=== PATIENT | male | born 2000 | race Caucasian/White ===

== ENCOUNTER 2023-03-06 15:11 | Outpatient (CLI) | payer BC, SELFPAY | END 2023-03-06 15:12 | disposition home or self-care (01) | LOC: NFLDREF 03-09 10:12 | PROVIDERS: PCP Nurse Practitioner Family; Referring Provider Nurse Practitioner Family; Visit Provider Nurse Practitioner Family | DX: Z79.899 Other long term (current) drug therapy (principal) | CPT/HCPCS: 80053; 82306; 84443 ==

== ENCOUNTER 2024-05-14 14:20 | Outpatient (CLI) | payer BC, SELFPAY ==
--- OUTSIDE RECORDS SUMMARY | 2024-05-14 14:23 | XMS_ITS | Clinical Summary ---
Author Organization [facility] [employer] Address [place], [place] [address] Care Team Providers Care Channel Marketing Manager Name Role Phone Erin Mendoza NP Primary Care Provider [phone] Allergies No known active allergies Medications Medication Sig Dispensed Refills Start Date End Date Status erythromycin ophthalmic ointment 0.5%Indications:Abrasio n of right cornea, initial encounter Apply 1 Strip to right eye 5 times daily. 3.5 g 06/15/2023 Active Social History Tobacco Use Types Packs/Day Years Used Date Smoking Tobacco: Never Assessed Sex and Gender Information Value Date Recorded Sex Assigned at Not on file Gender Identity Not on file Sexual Orientation Not on file Last Filed Vital Signs Vital Sign Reading Time Taken Comments Blood Pressure 126/71 06/15/2023 10:13 AM CDT Pulse 84 06/15/2023 10:13 AM CDT Temperature 36.6 ??C (97.8 ??F) 06/15/2023 10:13 AM C DT Respiratory Rate 18 06/15/2023 10:13 AM CDT Oxygen Saturation 99% 06/15/2023 10:13 AM CDT Inhaled Oxygen Concentration - - Weight 62.1 kg (137 lb) 06/15/2023 10:13 AM CDT Height 154.9 cm (5' 1) 06/15/2023 10:13 AM CDT Body Mass Index 25.89 06/15/2023 10:13 AM CDT Plan of Treatment Health Maintenance Due Date Last Done Comments Tdap 2013 Depression screening for age 12+ 2014 HIV for age 15-65 2017 HPV series for age 9-26 (1 - Male 3-dose series) 2017 BMI (ht and wt on same day) for age 18+ 2020 Hepatitis C screening for age 18-79 2020 Tetanus booster 2022 COVID-19 vaccine series (2022- season) 2023 Influenza for age 9-49 07/21/2024 Meningococcal series for age 11-21 Aged Out No longer eligible based on patient's age to complete this topic Pneumococcal series for age 6-64 Aged Out No longer eligible based on patient's age to complete this topic Care Teams Channel Marketing Manager Relationship Specialty Start Date End Date Erin Mendoza EMBOSSING MACHINE OPERATOR [address] [place] [id number] PCP - General Emergency Medicine 06/15/23
--- OUTSIDE RECORDS SUMMARY | 2024-05-14 14:24 | XMS_ITS | Encounter Summary ---
Author Organization [facility] er Address [address] [place] [address] Care Team Providers Care Database Marketing Manager Name Role Phone Santo Ballesteros MD Primary Care Provider [phone] Encounter Details Date Type Department Care Team (Late st Contact Info) Description 02/24/2020 Telephone [place] [address] [place] [address] Erin Mendoza, HOD CARRIER, SUPERVISOR GEAR REPAIR [address] [place] [address] Social History Tobacco Use Types Packs/Day Years Used Date Smoking Tobacco: Former Smokeless Tobacco: Former Chew Alcohol Use Standard Drinks/Week Comments No 0 (1 standard drink = 0.6 oz pur e alcohol) AUDIT-C Answer Date Recorded Frequency of Alcohol Consumption Never 11/01/2018 Average Number of Drinks Not on file 018 Frequency of Binge Drinking Not on file 10/20 PHQ-2 Answer Date Recorded PHQ-2 Score 0 03/20/2019 Sex and Gender Information Value Date Recorded Sex Assigned at Not on file Gender Identity Not on file Sexual Orientation Not on file COVID-19 Exposure Response Date Recorded In the last month, have you been in contact with someone who was confirmed or suspected to have Coronavirus / COVID-19? No / Unsure 02/25/2020 11:00 AM CDT documented as of this encounter Plan of Treatment Not on file documented as of this encounter Visit Diagnoses Not on filedocumented in this encounter Care Teams Database Marketing Manager Relationship Specialty Start Date End Date Santo Ballesteros MD [address] [facility] [address] [place] [address] PCP - General 07/19/21 documented as of this encounter
--- OUTSIDE RECORDS SUMMARY | 2024-05-14 14:24 | XMS_ITS | Encounter Summary ---
Author Organization [facility] er Address [address] [place] [address] Care Team Providers Care Manager Adult Name Role Phone Santo Ballesteros MD Primary Care Provider [phone] Encounter Details Date Type Department Care Team (Late st Contact Info) Description 02/28/2024 9:40 AM CDT Lab [facility] Medicine [address] [place], [place] [id number] Encounters for blood and urine testing (Primary Dx) Social History Tobacco Use Types Packs/Day Years Used Date Smoking Tobacco: Every Day Cigarettes Smokeless Tobacco: Current Chew Alcohol Use Standard Drinks/Week Comments Yes 40 (1 standard drink = 0.6 oz pu re alcohol) AUDIT-C Answer Date Recorded Q1: How often do you have a drink containing alc ohol? Never 12/03/2020 Average Number of Drinks Not on file 021 Frequency of Binge Drinking Not on file 11/20 PHQ-2 Answer Date Recorded PHQ-9 Total Score 7 03/18/2021 Sex and Gender Information Value Date Recorded Sex Assigned at Not on file Gender Identity Not on file Sexual Orientation Not on file documented as of this encounter Plan of Treatment Not on file documented as of this encounter Visit Diagnoses Diagnosis Encounters for blood and urine testing- Primary Laboratory examination, unspecified documented in this encounter Care Teams Manager Adult Relationship Specialty Start Date End Date Santo Ballesteros MD [address] [place] [address] PCP - General 07/19/21 documented as of this encounter
--- OUTSIDE RECORDS SUMMARY | 2024-05-14 14:24 | XMS_ITS | Encounter Summary ---
Author Organization [facility] er Address [address] [place] [address] Care Team Providers Care Manager Corporate Marketing Name Role Phone Santo Ballesteros MD Primary Care Provider [phone] Encounter Details Date Type Department Care Team (Late st Contact Info) Description 02/06/2024 11:00 AM CDT Lab SE [facility] Medicine [address] [place], [place] [address] Encounters for blood and urine testing (Primary [...] documented in this encounter Care Teams Manager Corporate Marketing Relationship Specialty Start Date End Date Santo Ballesteros MD [address] [place] [address] PCP - General 07/19/21 documented as of this encounter
--- OUTSIDE RECORDS SUMMARY | 2024-05-14 14:24 | XMS_ITS | Clinical Summary ---
Author Organization [facility] er Address [address] [place] [address] Care Team Providers Care Supervisor Asbestos Textile Name Role Phone Santo Ballesteros MD Primary Care Provider [phone] Allergies No known active allergies Medications Medication Sig Dispensed Refills Start Date End Date Status hydrOXYzine (ATARAX) 50 MG tabletIndications:A nxiety Take 1-2 tablets (50-100 mg total) by mouth every 6 (six) hours if needed for anxiety 50 tablet 2 04/13/2021 Active Additional Information Patient not taking.Reported on 04/19/2023 traZODone (DESYREL) 50 MG tabletIndications:C hronic insomnia Take 1-2 tablets (50-100 mg total) by mouth at night if needed for sleep 30 tablet 2 04/13/2021 Active Additional Information Patient not taking.Reported on 04/19/2023 buPROPion XL (WELLBUTRIN XL) 150 MG 24 hr tabletIndications:D epression, unspecified depression type,Anxiety Take 1 tablet (150 mg total) by mouth 1 (one) time each day 30 tablet 04/13/2021 Active Additional Information Patient not taking.Reported on 04/19/2023 amphetamine-dextroa mphetamine XR (ADDERALL XR) 30 MG 24 hr capsule Take 1 capsule (30 mg total) by mouth 1 (one) time each day in the morning 01/17/2023 Active Active Problems Problem Noted Date Diagnosed Date Marijuana use 10/01/2020 Engages in binge consumption of alcohol 10/01/20 20 Overview: DUI in January 2020 Generalized anxiety disorder 10/01/2020 Encounters Date Type Department Care Team Description 02/28/2024 9:40 AM CDT Lab SE [facility] Medicine [address] [place] [address] Encounters for blood and urine testing (Primary Dx) from Last 3 Months Immunizations Name Administration Dates Next Due DTaP 03/30/2007,2002,2002 ,2002 DTaP / Hib 12/03/2003 DTaP 5 03/30/2007,2002,2002 ,2002 HPV 9-Valent 07/01/2021,06/04/2019,07/17/2017 Hep A, 2 Dose 07/17/2017 Hep B / HiB 2002 Hep B, Adolescent or Pediatric 2002,2001 Hep B, Unspecified 2002,2002 Hepatitis B 2002,2002 HiB 2002 Hib (HbOC) 2002 Hib (PRP-T) 12/03/2003,2002,2002 IPV 03/30/2007,2002,2002 ,2002 MMR 12/03/2003 MMRV 03/30/2007 Meningococcal MCV4P 06/04/2019,04/04/2014 Pneumococcal Polysaccharide 04/04/2014 Tdap 04/04/2014 Varicella 07/09/2014 Family History Medical History Relation Comments Diabetes Father Gout Father Other Father KIDNEY STONES Relation Status Comments Brother Alive Father Alive Mother Alive Social History Tobacco Use Types Packs/Day Years [...] Sign Reading Time Taken Comments Blood Pressure 124/80 04/19/2023 8:26 AM CDT Pulse 70 04/19/2023 8:26 AM CDT Temperature 37.2 ??C (99 ??F) 03/18/2021 9:33 AM CDT Respiratory Rate 14 04/19/2023 8:26 AM CDT Oxygen Saturation 98% 10/01/2020 8:47 AM YARDAGE CALLER Inhaled Oxygen Concentration - - Weight 61.6 kg (135 lb 11.2 oz) 04/19/2023 8:26 AM CDT Height 155 cm (5' 1.02) 04/19/2023 8:26 AM CDT Body Mass Index 25.62 04/19/2023 8:26 AM CDT Plan of Treatment Health Maintenance Due Date Last Done Comments Pneumococcal Vaccine: Pediat rics (0 to 5 Years) and At-Risk Patients (6 to 64 Years) (2 of 2 - PCV) 04/04/2015 04/04/2014 COVID-19 Vaccine (1 - 2022-2 4 season) 2023 DTaP,Tdap,and Td Vaccines (7 - Td or Tdap) 04/04/2024 04/04/2014, 03/30/2007, 03/30/2007, Additional history exists Influenza Vaccine (Season Ended) 2024 HPV Vaccines Completed 07/01/2021, 05/20, 07/17/2017 Care Teams Supervisor Asbestos Textile Relationship Specialty Start Date End Date Santo Ballesteros MD [address] [place] [address] PCP - General 07/19/21
== END 2024-05-14 14:21 | disposition home or self-care (01) ==
PROVIDERS: PCP Nurse Practitioner Family; Visit Provider Nurse Practitioner Family
DX: R10.13 Epigastric pain (principal)
CPT/HCPCS: 80053; 82150; 83690; 85025

== ENCOUNTER 2024-05-21 14:20 | Outpatient (CLI) | payer BC, SELFPAY ==
--- OUTSIDE RECORDS SUMMARY | 2024-05-21 18:32 | XMS_ITS | Encounter Summary ---
Author Organization [facility] er Address [address] [place] [address] Care Team Providers Care Pumper Gager Apprentice Name Role Phone Santo Ballesteros MD Primary Care Provider Encounter Details Date Type Department Care Team (Late st Contact Info) Description 02/28/2024 9:40 AM CDT Lab SE [facility] Medicine [address] [place], [place] [address] Encounters for blood and urine testing (Primary [...] unspecified documented in this encounter Care Teams Pumper Gager Apprentice Relationship Specialty Start Date End Date Santo Ballesteros MD [address] [place] [address] PCP - General 07/19/21 documented as of this encounter
--- OUTSIDE RECORDS SUMMARY | 2024-05-21 18:32 | XMS_ITS | Encounter Summary ---
Author Organization [facility] er Address [address] [place] [address] Care Team Providers Care French Binding Folder Name Role Phone Santo Ballesteros MD Primary Care Provider [phone] Encounter Details Date Type Department Care Team (Late st Contact Info) Description 02/24/2020 Telephone [place] [address] [place] [address] Erin Mendoza, VENETIAN BLIND WASHER, HELPER COORDINATOR [address] [place] [address] Social History Tobacco Use Types Packs/Day Years [...] on filedocumented in this encounter Care Teams French Binding Folder Relationship Specialty Start Date End Date Santo Ballesteros MD [address] [facility] [address] [place] [address] PCP - General 07/19/21 documented as of this encounter
--- OUTSIDE RECORDS SUMMARY | 2024-05-21 18:32 | XMS_ITS | Clinical Summary ---
Author Organization [facility] er Address [address] [place] [address] Care Team Providers Care Bus And Rail Operator Name Role Phone Santo Ballesteros MD Primary Care Provider Allergies No known active allergies Medications Medication [...] Description 02/28/2024 9:40 AM CDT Lab SE [facility] Medicine [address] [place] [address] Encounters for blood and urine testing (Primary [...] CDT Oxygen Saturation 98% 10/01/2020 8:47 AM FARM MANAGEMENT AGENT Inhaled Oxygen Concentration - - Weight 61.6 [...] 03/30/2007, 03/30/2007, Additional history exists Influenza Vaccine (#1) 2024 HPV Vaccines Completed 07/01/2021, 05/20, 07/17/2017 Care Teams Bus And Rail Operator Relationship Specialty Start Date End Date Santo Ballesteros MD [address] [place] [address] PCP - General 07/19/21
--- OUTSIDE RECORDS SUMMARY | 2024-05-21 18:32 | XMS_ITS | Clinical Summary ---
Author Organization [facility] Address [place], [place] [address] Care Team Providers Care Reagent Tender Name Role Phone Erin Mendoza NP Primary Care Provider [phone] Allergies No known active allergies Medications Medication [...] age to complete this topic Care Teams Reagent Tender Relationship Specialty Start Date End Date Erin Mendoza VICE PRESIDENT MARKETING & DEVELOPMENT [address] [place] [address] PCP - General Emergency Medicine 06/15/23
[2024-05-21 22:04] LABS: H pylori Ag Stool* Negative (Negative)
== END 2024-05-21 14:21 | disposition home or self-care (01) ==
LOC: KYNREF 18:30
PROVIDERS: PCP Nurse Practitioner Family; Visit Provider Nurse Practitioner Family
DX: R10.13 Epigastric pain (principal)
CPT/HCPCS: 87338

== ENCOUNTER 2024-05-28 08:53 | Outpatient (CLI) | payer BC, SELFPAY ==
--- OUTSIDE RECORDS SUMMARY | 2024-05-28 08:56 | XMS_ITS | Encounter Summary ---
Author Organization [facility] er Address [address] [place] [address] Care Team Providers Care News Assignment Editor Name Role Phone Santo Ballesteros MD Primary Care Provider [phone] Encounter Details Date Type Department Care Team (Late st Contact Info) Description 02/24/2020 Telephone [place] [address] [place] [address] Erin Mendoza, HEEL SPRAYER, MEDICAL NUMERICAL CONTROL OPERATOR [address] [place] [address] Social History Tobacco Use Types Packs/Day Years [...] on filedocumented in this encounter Care Teams News Assignment Editor Relationship Specialty Start Date End Date Santo Ballesteros MD [address] [facility] [address] [place] [address] PCP - General 07/19/21 documented as of this encounter
--- OUTSIDE RECORDS SUMMARY | 2024-05-28 08:56 | XMS_ITS | Clinical Summary ---
Author Organization [facility] Address [place], [place] [address] Care Team Providers Care Helmet Binder Name Role Phone Erin Mendoza NP Primary Care Provider [phone] Allergies No known active allergies Medications Medication [...] age to complete this topic Care Teams Helmet Binder Relationship Specialty Start Date End Date Erin Mendoza TALENT ENGINEER [address] [place] [address] PCP - General Emergency Medicine 06/15/23
--- OUTSIDE RECORDS SUMMARY | 2024-05-28 08:56 | XMS_ITS | Encounter Summary ---
Author Organization [facility] er Address [address] [place] [address] Care Team Providers Care Fitter Machinist Name Role Phone Santo Ballesteros MD Primary Care Provider Encounter Details Date Type Department Care Team (Late st Contact Info) Description 02/28/2024 9:40 AM CDT Lab SE [facility] Medicine [address] [place], [place] [address] Encounters for blood and urine testing (Primary [...] unspecified documented in this encounter Care Teams Fitter Machinist Relationship Specialty Start Date End Date Santo Ballesteros MD [address] [place] [address] PCP - General 07/19/21 documented as of this encounter
--- OUTSIDE RECORDS SUMMARY | 2024-05-28 08:56 | XMS_ITS | Clinical Summary ---
Author Organization [facility] er Address [address] [place] [address] Care Team Providers Care Summer Law Associate Name Role Phone Santo Ballesteros MD Primary Care Provider [phone] Allergies No known active allergies Medications Medication [...] Description 02/28/2024 9:40 AM CDT Lab SE [facility] Medicine [address] [place] [address] Encounters for blood and urine testing (Primary [...] CDT Oxygen Saturation 98% 10/01/2020 8:47 AM DATASTAGE ARCHITECT Inhaled Oxygen Concentration - - Weight 61.6 [...] Vaccines Completed 07/01/2021, 05/20, 07/17/2017 Care Teams Summer Law Associate Relationship Specialty Start Date End Date Santo Ballesteros MD [address] [place] [address] PCP - General 07/19/21
--- NOTE | 2024-05-28 09:31 | W.ANESCHARGE ---
Anesthesia Charges Start Date/Time Anesthesia Start Date: 05/28/24 Anesthesia Start Time: 09:20 Stop Date/Time Anesthesia Stop Date: 05/28/24 Anesthesia Stop Time: 09:37
--- NOTE | 2024-05-28 09:40 | W.ANESCHARGE ---
Anesthesia Charges Start Date/Time Anesthesia Start Date: 05/28/24 Anesthesia Start Time: 09:20 Stop Date/Time Anesthesia Stop Date: 05/28/24 Anesthesia Stop Time: 09:37
== END 2024-05-28 08:54 | disposition home or self-care (01) ==
LOC: OP CLINIC 08:54
PROVIDERS: PCP Nurse Practitioner Family; Visit Provider Internal Medicine
DX: R10.13 Epigastric pain (principal)
CPT/HCPCS: 00731; 43239; 88305; J2704; J3490